=== PATIENT | female | born 2000 | race Caucasian/White ===

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

== ENCOUNTER 2018-01-02 09:20 | Emergency (ER) | payer OTHER ==
[~2018-01-02] VITALS: Ht 149.9 cm; Wt 48.6 kg
[2018-01-02 09:30] VITALS: BP 134/71; PULSE 116; RESP 16; TEMP 98.7; O2SAT 94
[2018-01-02] MEDS ORDERED: SODIUM CHLOR 0.9% 1000 ML INJ 1,000 ML IV SCH (09:45)
[2018-01-02] MEDS ORDERED: SODIUM CHLORIDE 0.9% FLUSH 10 ML FLUSH IV FLUSH PRN (09:45)
[2018-01-02] MEDS ORDERED: KETOROLAC TROMETHAMINE 30 MG/ML (IVP) VIAL IVP ONE (09:45)
[2018-01-02] MEDS ORDERED: ONDANSETRON HCL 4 MG/2 ML VIAL IVP ONE (09:45)
--- NOTE | 2018-01-02 09:54 | PD ---
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 Patient states that she has vaginal bleeding consistently about 2-3 packs a day for the past 2 weeks. Patient was seen in emergency room 2 weeks ago and was treated for trichomonas vaginitis. Patient was given Flagyl 2 g p.o. Chlamydia PCR came back later and was positive. Patient received a letter yesterday and advised to come back to ED for evaluation. Patient complains of right upper quadrant abdominal pain since yesterday. Patient states the pain is sharp pain localized the right upper quadrant of the abdomen. Patient denies any pain radiation. Patient states that the pain is worse with deep breathing and movement. Patient denies any coughing congestion fever chills. Patient denies any nausea vomiting diarrhea. Patient denies any dysuria frequency. On a scale of 1-10 the pain is an 8 PFSH Past Medical History Depression: Yes Diminished Hearing: No Gastrointestinal Disorders: Yes (Constipation) Reproductive: Yes (Trich, chlam. ) Immunizations Current: Yes Tetanus Vaccination: Unknown Influenza Vaccination: No ?: Not LMP: 12/16/17 Ovarian Cysts: Yes Past Surgical History Surgical History: No Previous Surgery Social History Alcohol Use: No Tobacco Use: Yes (1/2 PPD) Substance Use: Yes (Marijuana daily ) Allergies-Medications (Allergen,Severity, Reaction): Coded Allergies: No Known Allergies (Verified Adverse Reaction, Unknown, 01/02/18) Reported Meds & Prescriptions Reported Meds & Active Scripts Active Ibuprofen 600 Mg Tab 600 Mg PO TID Bactrim DS (Sulfamethoxazole-Trimethoprim) 800-160 Mg Tab 1 Tab PO BID Doxycycline Hyclate 100 Mg Cap 100 Mg PO BID Review of Systems General / Constitutional: No: Fever Eyes: No: Visual changes HENT: No: Headaches Cardiovascular: No: Chest Pain or Discomfort Respiratory: No: Shortness of Breath Gastrointestinal: Positive: Abdominal Pain Genitourinary: Positive: Vaginal Bleeding, No: Dysuria Musculoskeletal: No: Pain Skin: No Rash Neurologic: No: Weakness Psychiatric: No: Depression Endocrine: No: Polydipsia Hematologic/Lymphatic: No: Easy Bruising Physical Exam Narrative GENERAL: Well-nourished, well-developed patient. SKIN: Focused skin assessment warm/dry. HEAD: Normocephalic. EYES: No scleral icterus. No injection or drainage. NECK: Supple, trachea midline. No JVD or lymphadenopathy. CARDIOVASCULAR: Regular rate and rhythm without murmurs, gallops, or rubs. RESPIRATORY: Breath sounds equal bilaterally. No accessory muscle use. GASTROINTESTINAL: Abdomen soft, nondistended. Patient has mild tenderness on palpation right upper quadrant of the abdomen and moderate tenderness on palpation right lower quadrant of the abdomen. No rebound tenderness. No mass. MUSCULOSKELETAL: No cyanosis, or edema. BACK: Nontender without obvious deformity. No CVA tenderness. Data Data Last Documented VS Vital Signs Date Time Temp Pulse Resp B/P (MAP) Pulse Ox O2 Delivery O2 Flow Rate FiO2 01/02/18 11:01 73 18 98 Room Air 01/02/18 09:30 98.7 Orders Orders Urinalysis - C+S If Indicated (01/02/18 09:24) Ed Urine Pregnancytest Poc (01/02/18 09:24) Complete Blood Count With Diff (01/02/18 09:45) Comprehensive Metabolic Panel (01/02/18 09:45) Ct Abd/Pel W Iv Contrast(Rout) (01/02/18 09:45) Iv Access Insert/Monitor (01/02/18 09:45) Ecg Monitoring (01/02/18 09:45) Oximetry (01/02/18 09:45) Ondansetron Inj (Zofran Inj) (01/02/18 09:45) Sodium Chlor 0.9% 1000 Ml Inj (Ns 1000 M (01/02/18 09:45) Sodium Chloride 0.9% Flush (Ns Flush) (01/02/18 09:45) Ketorolac Inj (Toradol Inj) (01/02/18 09:45) Iohexol 350 Inj (Omnipaque 350 Inj) (01/02/18 10:52) Azithromycin Powd Pack (Zithromax Powd P (01/02/18 11:15) Ceftriaxone Inj (Rocephin Inj) (01/02/18 11:15) Labs Laboratory Tests Test 01/02/18 09:55 01/02/18 10:30 White Blood Count 9.7 TH/MM3 Red Blood Count 4.55 MIL/MM3 Hemoglobin 13.3 GM/DL Hematocrit 38.4 % Mean Corpuscular Volume 84.4 FL Mean Corpuscular Hemoglobin 29.2 PG Mean Corpuscular Hemoglobin Concent 34.5 % Red Cell Distribution Width 13.4 % Platelet Count 498 TH/MM3 Mean Platelet Volume 8.9 FL Neutrophils (%) (Auto) 74.7 % Lymphocytes (%) (Auto) 15.2 % Monocytes (%) (Auto) 7.3 % Eosinophils (%) (Auto) 1.1 % Basophils (%) (Auto) 1.7 % Neutrophils # (Auto) 7.2 TH/MM3 Lymphocytes # (Auto) 1.5 TH/MM3 Monocytes # (Auto) 0.7 TH/MM3 Eosinophils # (Auto) 0.1 TH/MM3 Basophils # (Auto) 0.2 TH/MM3 CBC Comment DIFF FINAL Differential Comment Blood Urea Nitrogen 9 MG/DL Creatinine 0.63 MG/DL Random Glucose 105 MG/DL Total Protein 8.0 GM/DL Albumin 2.9 GM/DL Calcium Level 8.8 MG/DL Alkaline Phosphatase 99 U/L Aspartate Amino Transf (AST/SGOT) 19 U/L Alanine Aminotransferase (ALT/SGPT) 17 U/L Total Bilirubin 0.4 MG/DL Sodium Level 137 MEQ/L Potassium Level 3.6 MEQ/L Chloride Level 105 MEQ/L Carbon Dioxide Level 24.4 MEQ/L Anion Gap 8 MEQ/L Estimat Glomerular Filtration Rate 122 ML/MIN Urine Collection Type CLEAN CATCH Urine Color YELLOW Urine Turbidity SL CLOUDY Urine pH 6.0 Urine Specific [place] 1.025 Urine Protein TRACE mg/dL Urine Glucose (UA) NEG mg/dL Urine Ketones TRACE mg/dL Urine Occult Blood LARGE Urine Nitrite NEG Urine Bilirubin NEG Urine Urobilinogen 0.2 MG/DL Urine Leukocyte Esterase SMALL Urine RBC 10-14 /hpf Urine WBC 6-8 /hpf Urine Squamous Epithelial Cells 0-5 /hpf Urine Amorphous Sediment MOD Urine Bacteria RARE /hpf Microscopic Urinalysis Comment CULT NOT INDICATED Urine Collection Time 1030 MDM Medical Decision Making Medical Screen Exam Complete: Yes Emergency Medical Condition: Yes Interpretation(s) 11:[address] scan abdomen pelvis negative acute pathology. CBC within normal limits. Platelet 498. CMP within normal limits. UA positive for WBC RBC and bacteria. Differential Diagnosis Differential diagnosis including cervicitis, PID, appendicitis, UTI, pyelonephritis, nephrolithiasis, cholecystitis, colitis. Narrative Course 17-year-old female with right upper quadrant and right lower quadrant abdominal pain. Patient was tested positive for trichomonas and was treated 2 weeks ago. Patient was tested positive for chlamydia and has not been treated for that. Normal saline solution 125 cc an hour. Rocephin 1 g IV given. Zithromax 1 g p.o. given. Toradol 30 mg IV. Diagnosis Primary Impression: PID (acute pelvic inflammatory disease) Additional Impression: UTI (urinary tract infection) Qualified Codes: N30.00 - Acute cystitis without hematuria Patient Instructions: General Instructions Additional Instructions: Take medications as directed. Follow-up with personal physician. Return if worse. Med/Other Pt SpecificInfo: Prescription(s) given Scripts Ibuprofen (Ibuprofen) 600 Mg Tab 600 MG PO TID for Pain, #30 TAB 0 Refills Prov: Parker Agee MD 01/02/18 Sulfamethoxazole-Trimethoprim (Bactrim DS) 800-160 Mg Tab 1 TAB PO BID for Infection, #14 TAB 0 Refills Prov: Parker Agee MD 01/02/18 Doxycycline Hyclate (Doxycycline Hyclate) 100 Mg Cap 100 MG PO BID for Infection, #20 CAP 0 Refills Prov: Parker Agee MD 01/02/18 Disposition: 01 DISCHARGE HOME Condition: Stable Parker Agee MD Jan 02, 2018 09:54
[2018-01-02 09:55] VITALS: BP 92/75; PULSE 114; RESP 16; O2SAT 97
[2018-01-02 10:13] LABS: CHLORIDE 105 MEQ/L (98-107); SODIUM (NA) 137 MEQ/L (136-145)
[2018-01-02 10:17] LABS: ALBUMIN 2.9 GM/DL (3.4-5.0); AUTOMATED NEUTROPHIL # 7.2 TH/MM3 (1.8-7.7); BASOPHIL # 0.2 TH/MM3 (0-0.2); BASOPHIL % 1.7 % (0.0-2.0); BICARBONATE 24.4 MEQ/L (21.0-32.0); BLOOD UREA NITROGEN 9 MG/DL (7-18); CALCIUM 8.8 MG/DL (8.5-10.1); EOSINOPHIL # 0.1 TH/MM3 (0-0.4); EOSINOPHIL % 1.1 % (0.0-4.0); GLUCOSE,RANDOM 105 MG/DL (74-106); HEMATOCRIT 38.4 % (35.0-46.0); HEMOGLOBIN 13.3 GM/DL (11.6-15.3); LYMPH % 15.2 % (9.0-44.0); LYMPHOCYTE # 1.5 TH/MM3 (1.0-4.8); MEAN CELL VOLUME 84.4 FL (80.0-100.0); MEAN CORPUSCULAR HEMOGLOBIN 29.2 PG (27.0-34.0); MEAN CORPUSCULAR HGB CONC 34.5 % (32.0-36.0); MEAN PLATELET VOLUME 8.9 FL (7.0-11.0); MONO % 7.3 % (0.0-8.0); MONOCYTE # 0.7 TH/MM3 (0-0.9); NEUT % 74.7 % (16.0-70.0); PLATELET COUNT 498 TH/MM3 (150-450); RED BLOOD COUNT 4.55 MIL/MM3 (4.00-5.30); RED CELL DISTRIBUTION WIDTH 13.4 % (11.6-17.2); WHITE BLOOD COUNT 9.7 TH/MM3 (4.0-11.0)
[2018-01-02 10:20] LABS: ALT (GPT) 17 U/L (9-42); AST (GOT) 19 U/L (16-38); CREATININE 0.63 MG/DL (0.50-1.00); GLOMERULAR FILTRATION RATE 122 ML/MIN (>89)
[2018-01-02 10:22] LABS: TOTAL BILIRUBIN ADULT 0.4 MG/DL (0.2-1.0)
[2018-01-02 10:23] LABS: ALKALINE PHOSPHATASE 99 U/L (45-117)
[2018-01-02 10:41] LABS: BLOOD, URINE LARGE (NEG); GLUCOSE,URINE NEG (NEG); KETONE, URINE TRACE mg/dL (NEG); NITRITE,URINE NEG (NEG); URINE COLOR YELLOW (YELLW/STRAW); URINE LEUKOCYTE ESTERASE SMALL (NEG)
[2018-01-02 10:44] LABS: BILIRUBIN, URINE NEG (NEG)
[2018-01-02 10:46] LABS: AMORPHOUS SEDIMENT, URINE MOD; BACTERIA, URINE RARE /hpf; SQUAMOUS EPITHELIAL CELL URINE 0-5 /hpf (0-5)
[2018-01-02] MEDS ORDERED: IOHEXOL 350 MG/ML 10 ML VIAL (for RAD DIAG) IVCONTRAST ONE (10:52)
[2018-01-02 11:01] VITALS: PULSE 73; RESP 18; O2SAT 98
--- NOTE | 2018-01-02 11:03 | RADRPT ---
EXAM DATE/TIME: 01/02/2018 10:42 [facility] COMPARISON: CT ABDOMEN & PELVIS W CONTRAST, December 20, 2017, 19:16. INDICATIONS : Right upper and lower quadrant pain x 1 days. Heavy vaginal bleeding x 2 weeks. IV CONTRAST: 80 cc Omnipaque 350 (iohexol) IV ORAL CONTRAST: No oral contrast ingested. RADIATION DOSE: 4.70 CTDIvol (mGy) MEDICAL HISTORY : Ovarian cysts. SURGICAL HISTORY : None. ENCOUNTER: Initial ACUITY: 2 weeks PAIN SCALE: 6/10 LOCATION: Right lower quadrant TECHNIQUE: Volumetric scanning of the abdomen and pelvis was performed. Using automated exposure control and ad justment of the mA and/or kV according to patient size, radiation dose was kept as low as reasonably achievable to obtain optimal diagnostic quality images. DICOM format image data is available electro nically for review and comparison. FINDINGS: LOWER LUNGS: The visualized lower lungs are clear. LIVER: Homogeneous density without lesion. There is no dilation of the biliary tree. No calcified gallston es. SPLEEN: Normal size without lesion. PANCREAS: Within normal limits. KIDNEYS: Normal in size and shape. There is no mass, stone or hydronephrosis. ADRENAL GLANDS: Within normal limits. VASCULAR: There is no aortic aneurysm. BOWEL/MESENTERY: The stomach, small bowel, and colon demonstrate no acute abnormality. There is no free intraperitone al air or fluid. I believe I can see a normal appendix on the coronally reformatted images. ABDOMINAL WALL: Within normal limits. RETROPERITONEUM: There is no lymphadenopathy. BLADDER: No wall thickening or mass. REPRODUCTIVE: Prominent cystic area left adnexa I believe is a 2.8 cm functional cyst. The uterus is slightly shift ed from left to right. Trace free fluid in the cul-de-sac. INGUINAL: There is no lymphadenopathy or hernia. MUSCULOSKELETAL: Within normal limits for patient age. CONCLUSION: No evidence of bowel obstruction. I believe I can identify a normal appendix on the coronal reformatt ed images images 31-41 medial to the cecum. Prominent left ovarian cyst. Trace free fluid in the pel vis. Dariusz Davis MD on January 02, 2018 at 10:57 Board Certified Radiologist. This report was verified electronically.
[2018-01-02] MEDS ORDERED: cefTRIAXone INJ 1,000 MG in SODIUM CHLORIDE 0.9% INJ 100 ML IV ONE (11:15)
[2018-01-02] MEDS ORDERED: DOXY100C PO (11:15)
[2018-01-02] MEDS ORDERED: AZITHROMYCIN PWD FOR SUSP 1 GM PACKET PO ONE (11:15)
[2018-01-02] MEDS ORDERED: BACT800T5 PO (11:16)
[2018-01-02] MEDS ORDERED: IBUP-232 PO (11:17)
[2018-01-02 12:13] VITALS: BP 109/68; PULSE 78; RESP 20; O2SAT 98
== END 2018-01-02 12:26 | disposition home or self-care (01) ==
LOC: PHED 09:20
DX: N73.9 Female pelvic inflammatory disease, unspecified (principal); N30.00 Acute cystitis without hematuria; F32.9 Major depressive disorder, single episode, unspecified; F17.200 Nicotine dependence, unspecified, uncomplicated; F12.90 Cannabis use, unspecified, uncomplicated
CPT/HCPCS: 74177; 80053; 81001; 84703; 85025; 96361; 96365; 96375; 99285; J0696; J1885; J2405; J7030; Q9967